=== PATIENT | female | born 1965 | race Caucasian/White ===

== ENCOUNTER → 2020-07-23 | Day surgery (SDC) | payer OTHER ==
[~2020-07-23] MED LIST: Ketamine 200 MG/20 ML MDV ONE; Lactated Ringers 1,000 ML IV SCH; Lidocaine 2% 5 ML SDV ONE; Phenylephrine 1% 10 MG/ML SDV ONE; Propofol 200 MG/20 ML SDV ONE; fentaNYL 100 MCG/2 ML SDV ONE
--- NOTE | 2020-07-23 13:21 | OR ---
DATE OF OPERATION: 07/23/2020 PREOPERATIVE DIAGNOSIS: PERSISTENT GASTROESOPHAGEAL REFLUX DISEASE. POSTOPERATIVE DIAGNOSIS: PERSISTENT GASTROESOPHAGEAL REFLUX DISEASE. SURGEON: Tino Patel MD PROCEDURE: DIAGNOSTIC ESOPHAGOGASTRODUODENOSCOPY WITH ROSINA. ANESTHESIA: MAC. COMPLICATIONS: None. SPECIMEN: Antral ROSINA. FINDINGS: 1. Normal full-length EGD with spontaneous reflux. 2. No signs of distal esophagitis, stricturing, ulceration, or Gaspar's changes. RECOMMENDATIONS: Aggressive routine reflux treatment with lifestyle modification. INDICATIONS: The patient has been having apparently ongoing issues with reflux. Rebecca sent her for diagnostic scope. DESCRIPTION OF PROCEDURE: The patient was prepped and draped, placed in the left lateral decubitus position. A lubricated Olympus gastroscope was inserted over a bit, advanced to cricopharyngeus area, and easily intubated into the esophagus. The esophageal lining was benign in its entire course. The Z-line was crisp and sharp right at 40 cm. There was no hiatal hernia. There was no distal esophagitis, stricturing, ulceration, or Gaspar's changes. There may have been a small amount of spontaneous reflux seen during the procedure. The scope was easily advanced into the stomach, through the pylorus, and into the second portion of the duodenum. This and the duodenal bulb were benign. The scope was brought back into the stomach and retroflexed. The upper fundus and cardia were completely unremarkable. Direct visualization of the rest of the fundus and antrum were completely benign. A CLOtest was obtained. Air was then suctioned. The scope was removed without complication. BAMBI/FERNANDOL /[id number]
== END ==
LOC: CC.SDS 07:56
PROVIDERS: ATTEND Family Medicine
DX: K21.9 Gastro-esophageal reflux disease without esophagitis (principal); R13.10 Dysphagia, unspecified; Z79.82 Long term (current) use of aspirin; Z01.812 Encounter for preprocedural laboratory examination; Z20.822 Contact with and (suspected) exposure to COVID-19; Z79.899 Other long term (current) drug therapy; Z90.49 Acquired absence of other specified parts of digestive tract; Z98.890 Other specified postprocedural states
CPT/HCPCS: 00731; 87081; J2370; J2704; J3010; J7120

== ENCOUNTER → 2022-06-09 | Day surgery (SDC) | payer OTHER ==
[~2022-06-09] MED LIST changes: -Lactated Ringers 1,000 ML IV SCH; -Lidocaine 2% 5 ML SDV ONE; +Ondansetron 4 MG/2 ML SDV ONE; -Phenylephrine 1% 10 MG/ML SDV ONE; -fentaNYL 100 MCG/2 ML SDV ONE; +fentaNYL 50 MCG/ML SDV ONE
[2022-06-09] MEDS: Lactated Ringers 1,000 ML IV SCH (11:34)
[2022-06-09 13:22] VITALS: BP 116/60; PULSE 64
== END ==
LOC: CC.SDS 11:02
PROVIDERS: ATTEND Family Medicine
DX: Z12.11 Encounter for screening for malignant neoplasm of colon (principal); K63.5 Polyp of colon; K62.1 Rectal polyp; Z79.899 Other long term (current) drug therapy; Z90.49 Acquired absence of other specified parts of digestive tract; Z90.710 Acquired absence of both cervix and uterus; Z98.890 Other specified postprocedural states
CPT/HCPCS: J2405; J2704; J3010; J7120

== ENCOUNTER 2022-12-09 12:21 | Emergency (ER) | payer OTHER ==
[2022-12-09] MEDS: methylPREDNISolone Sodium Succinate 125 MG/2 ML SDV IM STA (12:42)
== END 2022-12-09 13:00 | disposition home or self-care (01) ==
LOC: CC.ED 12:21
DX: T36.8X5A Adverse effect of other systemic antibiotics, initial encounter (principal); Z88.1 Allergy status to other antibiotic agents
CPT/HCPCS: 96372; 99282; 99283; J2930